=== PATIENT | male | born 1955 | race Caucasian/White ===

== ENCOUNTER → 2016-08-27 | Outpatient (CLI) | payer BC ==
[2016-08-27 15:21] LABS: BASO % 0.5 %; BASO ABS # 0.03 K/uL (0-0.2); COMPLETE YES; EOS % 5.3 %; HEMATOCRIT 46.6 % (42-52); IG% 0.2 %; LYMPH % 34.3 %; LYMPH ABS # 1.89 K/uL (1.2-3.4); MEAN CELL VOLUME 86.1 fL (80-100); MEAN CORPUSCULAR HEMOGLOBIN 29.9 pg (25-34); MEAN CORPUSCULAR HGB CONC 34.8 g/dl (32-36); MEAN PLATELET VOLUME 9.1 fL (7.4-10.4); MONO % 10.5 %; NEUT % 49.2 %; PLATELET COUNT 206 K/uL (130-400); RED BLOOD COUNT 5.41 M/uL (4.7-6.1); WHITE BLOOD COUNT 5.51 K/uL (4.8-10.8)
[2016-08-27 15:30] LABS: URINE APPEARANCE CLEAR (CLEAR); URINE BILIRUBIN NEG (NEG); URINE COLOR YELLOW; URINE NITRITE NEG (NEG); URINE PH 5.5 (4.5-7.5); URINE SPECIFIC GRAVITY 1.015 (1.000-1.030); UROBILINOGEN NEG (NEG)
[2016-08-27 15:30] LABS: PROTHROMBIN TIME (PATIENT) 10.9 SECONDS (9.0-12.0)
[2016-08-27 15:36] LABS: MANUAL MICROSCOPIC REQUIRED? NO; REVIEW REQ? NO
[2016-08-27 15:48] LABS: BLOOD UREA NITROGEN 15 mg/dl (7-18); BUN/CREATININE RATIO 16.3 (10-20); CHLORIDE 106 mmol/L (98-107); CREATININE 0.93 mg/dl (0.60-1.40); GLUCOSE 121 mg/dl (70-99); POTASSIUM 3.5 mmol/L (3.5-5.1); SODIUM 139 mmol/L (136-145)
[2016-08-27 15:49] LABS: ALT/SGPT 41 U/L (12-78); CALCIUM 9.1 mg/dl (8.5-10.1); CARBON DIOXIDE 25 mmol/L (21-32)
[2016-08-27 15:52] LABS: ALB/GLOB RATIO 1.2 (0.9-2); ALKALINE PHOSPHATASE 102 U/L (45-117); AST/SGOT 26 U/L (15-37)
== END | disposition home or self-care (01) ==
LOC: C.CPL 14:41
PROVIDERS: ATTEND Orthopaedic Surgery
DX: M17.12 Unilateral primary osteoarthritis, left knee (principal)

== ENCOUNTER → 2017-05-13 | Outpatient (CLI) | payer BC | END | disposition home or self-care (01) | LOC: C.LAB 11:01 | PROVIDERS: ATTEND Urology | DX: N40.1 Benign prostatic hyperplasia with lower urinary tract symptoms (principal) ==

== ENCOUNTER 2021-11-02 13:52 | Inpatient (IN) ==
[2021-11-02] MEDS ORDERED: MoRPHine SULFATE 4 MG/ML 1 ML CARP\\VIAL IV PRN (16:01)
[2021-11-02] MEDS ORDERED: ONDANSETRON INJ 2 MG/ML 2 ML VIAL IV STA (16:01)
[2021-11-02] MEDS ORDERED: methylPREDNISolone 125 MG/2 ML VIAL IV STA (16:02)
[2021-11-02 16:37] LABS: Basophils # (auto) 0.04 K/uL (0-0.2); Basophils % (auto) 0.5 %; Eosinophils # (auto) 0.09 K/uL (0-0.50); Eosinophils % (auto) 1.1 %; Hematocrit (blood only) 52.7 % (40.1-51.0); Hemoglobin 18.4 g/dl (14.0-18.0); Immature Granulocytes # (auto) 0.03 K/uL (0.00-0.02); Immature Granulocytes % (auto) 0.4 %; Lymphocytes # (auto) 1.68 K/uL (1.2-3.4); Lymphocytes % (auto) 21.3 %; Mean Corpuscular Hemoglobin 30.6 pg (25.0-34.0); Mean Corpuscular Hgb Conc 34.9 g/dL (32.0-36.0); Mean Corpuscular Volume 87.5 fL (80.0-100.0); Mean Platelet Volume 8.3 fL (9.4-12.4); Monocytes # (auto) 0.82 K/uL (0.24-0.82); Monocytes % (auto) 10.4 %; Neutrophils # (auto) 5.23 K/uL (1.4-6.5); Neutrophils % (auto) 66.3 %; Platelet Count 201 K/uL (130-400); RDW Coefficient of Variation 12.8 % (11.5-14.5); RDW Standard Deviation 41.3 fL (36.4-46.3); Red Blood Count 6.02 M/uL (4.63-6.08); White Blood Count 7.89 K/ul (4.8-10.8)
--- NOTE | 2021-11-02 16:52 | History & Physical Report ---
Date of Service November 02, 2021 Assessment & Plan (1) Degenerative disc disease: (2) Lumbar radiculopathy: (3) Prediabetes: (4) HLD (hyperlipidemia): (5) BPH w urinary obs/LUTS: Plan Pt is a 66 year old who presented to the [facility] with worsening sciatica and lower back pain. Pt has had complex back surgeries in his past. Two weeks ago, on 10/20 an MRI was obtained and results indicated disc buldging; surgery was discussed but more conservative approach was made. Pt returned to ED with worsening pain and symptoms. Dr. Moore to see pt on 11/03 for evaluation for surgery. Patient will be admitted under medicine service overnight; pain management and will be kept NPO after midnight for possible surgical intervention. Degenerative Disc Disease Lumbar Radiculopathy 10/20/21: Lumbar MRI: 9 x 6 mm right foraminal disc extrusion at the L3-L4 level which compresses the exiting right L3 nerve root Mild paravertebral edema and enhancement at the L3 level. Mild endplate edema at the L2-L3 level. Conservative management decided on initially; appears to have persistent symptoms not responding to conservative treatment, which brought him back to ED today. Orthopedics surgery consulted; Dr. Moore aware and plan for eval and possible surgery on 11/03 Pain management: Morphine IV 2mg Q3 PRN and Ketorolac ordered. Bowel regimen; senna and colace ordered. NPO after midnight Hgb 18.4; will trend in AM with CBC and also a BMP PT/OT if surgery pursued. Prediabetes: Diet controlled A1C: 5.6 on 08/30/21 HLD: Stable; takes Atorvastatin; continue after surgery. BPH: Stable: Takes Diana; continue after surgery. Disposition: PCP: Dr. Mert Linares VTE prophylaxis: SCDs; consider additional regimen post op Code Status: Full code Next of kin: ; [place]: [phone] Please contact [facility] Hospitalist service for further inpatient needs. We are available on [employer] 17/09. History of Present Illness Chief Complaint: sciatica/pain Primary Care Provider: Mert Linares DO Pt is a 66 year old who presented to the [facility] with worsening sciatica and lower back pain 12/04. Pt has had complex back surgeries in his past. Two weeks ago, on 10/20 a lumbar spine x-ray and MRI was obtained and results indicated disc buldging; surgery was discussed but more conservative approach was made. Pt returned to ED with worsening pain and symptoms. Dr. Moore to see pt on 11/03 for evaluation for surgery. Patient will be admitted under medicine service overnight; pain management and will be kept NPO after midnight for possible surgical intervention. Additional PMH includes: HLD, prediabetes, arthritis and BPH. Please see A/P for further details. Allergies Allergy/AdvReac Type Severity Reaction Status Date / Time No Known Allergies Allergy Verified 01/16/21 08:52 Home Medications Medication Instructions Recorded Confirmed Type atorvastatin 20 mg tablet 20 mg PO QAM 09/29/19 11/02/21 History dutasteride 0.5 mg-tamsulosin ER 1 cap PO QAM #90 caps 12/26/20 11/02/21 Rx 0.4 mg capsule ext.release 24hr mphas (Diana) potassium citrate 10 mEq (1,080 10 meq PO QAM #90 tabs 12/26/20 11/02/21 Rx mg) tablet,extended release prednisone 10 mg tablet See Rx Instructions .Route 10/20/21 11/02/21 Rx .COMPLEX #39 tabs Past Med/Surg History Medical History Arthritis BPH (benign prostatic hyperplasia) Degenerative disc disease High cholesterol History of COVID-19 02/2020 (ALL SYMPTOMS RESOLVED) History of kidney stones HLD (hyperlipidemia) Prediabetes Spinal stenosis Surgical History H/O bilateral inguinal hernia repair History of carpal tunnel surgery RT/LEFT History of colonoscopy History of cystoscopy History of decompression of ulnar nerve left History of lumbar surgery for disc fragment and spinal stenosis History of tonsillectomy Hx of sinus surgery Total knee replacement status RT/LEFT [place] teeth removed Family History Father Prostate cancer Mother Diabetes Family history of diabetes mellitus Brother Family history of diabetes mellitus Other No family history of adverse response to anesthesia Social History Smoking Status: Never smoker Second Hand Exposure: No; Hx Alcohol Use: No Hx Substance Use: No Preferred Language: Finnish Communication Ability: Effective 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 Beliefs That Will Affect Care: None marital status: Current Living Situation: Spouse current occupational status: employed and retired current occupation: [employer] How many Children do You have: 1 Feels Safe at Home: Yes Assistive Devices: Glasses Review of Systems Review of Systems: Neuro: (-) Falls, trauma, slurred speech (+) sciatica HEENT: (-) DOOLEY, dizziness, dysphagia, visual or auditory changes CV: (-) CP, palpitations, swelling Resp: (-) SOB GI: (-) appetite changes, N/V/D, bowel changes : (-) urinary changes Skin: (-) rashes Psych: (-) anxiety, depression Physical Exam Physical Exam: Neuro: AAOx4, PERRLA, no aphagia, memory changes, CNII-XII grossly intact HEENT: head normocephalic, moist mucus membranes CV: S1/S2, (-) M/G/R, (-) edema, cap refill < 3 seconds Resp: Lungs CTA in all powers. On RA GI: Abdomen S/NT/ND, Ax4 bowel sounds, (-) CVA tenderness Musculoskeletal: 5/5 B/L UE strength, 5/5 B/L LE strength. (+) radiation pain down both legs with movement. Skin: (-) rashes , (-) erythema. Psych: euthymic mood Results & Data Results & Data ([facility]) Vital Signs (Past 12 Hours) Vital Signs Temp Pulse Resp BP Pulse Ox O2 Del Method 11/02/21 14:36 36.9 C 110 H 17 111/75 96 Room Air Laboratory Results Short CBC 11/02/21 Range/Units 16:20 WBC 7.89 (4.8-10.8) K/ul Hgb 18.4 H (14.0-18.0) g/dl Hct 52.7 H (40.1-51.0) % Plt Count 201 (130-400) K/uL Code Status & VTE Plan Code Status Full code in the event of cardiac or respiratory arrest VTE Prophylaxis Plan VTE Prophylaxis will be ordered: Yes Supervising Physician Co-Signing Physician Notes 66-year-old male with PMH of low back pain with radiculopathic pain to RLE presented with worsening low back pain and BLE radicular pain this time. Recent MRI on 10/20 suggestive of moderate to severe central canal narrowing of lumbar region and right foraminal disc extrusion at L3-L4 level compressing exiting right L3 nerve root. Orthospine aware and will likely evaluate tomorrow for possible surgery. N.p.o. midnight. Patient reports pain under control when lying in bed but exacerbated with any movement or walking, patient reports not being able to sleep since last 2 nights due to pain. Patient does have history of 2 previous low back surgery. Pain management. Bowel regimen. N.p.o. midnight. Possible surgery tomorrow. Upon examination: GENERAL: Alert and oriented x3. NAD, on RA. HEENT: No pallor, no icterus. Pupils equal, round and reactive to light. Oral mucosa moist. NECK: No JVD, no neck masses. HEART: S1 and S2 heard. Regular rate and rhythm. No murmur, no gallop. RESPIRATORY SYSTEM: Normal AP diameter. No accessory muscle use. No wheezing, no crackles. ABDOMEN: Soft, bowel sounds present, nontender, no distention. CENTRAL NERVOUS SYSTEM: No facial droop. Speech is clear. Obeys simple commands. Moves extremities. EXTREMITIES: No edema, no erythema seen. Lower back pain and radicular pain w/ passive movement of LE. I have seen and examined the patient and have discussed the case with the provider above. I agree with the assessment and plan as stated.
[2021-11-02 16:54] LABS: Alanine Aminotransferase 24 U/L (7-52); Albumin Globulin Ratio 1.8 (0.9-2); Albumin Level 4.2 gm/dl (3.4-5.0); Alkaline Phosphatase 80 U/L (34-104); Anion Gap 7 (3-11); Aspartate Aminotransferase 21 U/L (13-39); BUN Creatinine Ratio 23.3 (10-20); Bilirubin,Total 0.9 mg/dl (0.2-1.0); Blood Urea Nitrogen 20 mg/dl (6-23); Calcium 9.3 mg/dl (8.5-10.1); Carbon Dioxide 29 mmol/L (21-32); Chloride 103 mmol/L (98-107); Est GFR (African American) 104.7 ml/min; Est GFR (Non-African American) 90.4 ml/min; Globulin 2.4 gm/dl (2.5-4.0); Glucose 91 mg/dl (70-99(Fasting)); Potassium 4.6 mmol/L (3.5-5.1); Sodium 139 mmol/L (136-145); Total Protein 6.6 gm/dl (6.0-8.3)
--- NOTE | 2021-11-02 16:56 | Emergency Department Note ---
History of Present Illness General Chief complaint: Leg Injury/Pain Stated complaint: SEVERE LEG PAIN Time Seen by Provider: 11/02/21 15:49 History of Present Illness Maximum Pain Intensity: 10 This is a 66-year-old male presenting to the emergency department for evaluation of severe pain in his back and right leg. The patient is known to me from an ER visit about 2 weeks ago where MRI was performed and showed significant disc disease in the low back. The patient subsequently has followed with [facility]al pain management [facility] well as [facility]. The patient is not doing well with home oxycodone and prednisone. He was not able to sleep last night because of the pain which he rates a 10/10. He does not have any new injuries such as fall or trauma. There is an old history of surgery. The patient is accompanied by his who assists in the history. He has not had fevers or chills. He is unable to ambulate because of his pain. Home Medications Medication Instructions Recorded Confirmed Type atorvastatin 20 mg tablet 20 mg PO QAM 09/29/19 11/02/21 History dutasteride 0.5 mg-tamsulosin ER 1 cap PO QAM #90 caps 12/26/20 11/02/21 Rx 0.4 mg capsule ext.release 24hr mphas (Diana) potassium citrate 10 mEq (1,080 10 meq PO QAM #90 tabs 12/26/20 11/02/21 Rx mg) tablet,extended release prednisone 10 mg tablet See Rx Instructions .Route 10/20/21 11/02/21 Rx .COMPLEX #39 tabs Allergies Allergy/AdvReac Type Severity Reaction Status Date / Time No Known Allergies Allergy Verified 01/16/21 08:52 Past Med/Surg History Medical History Arthritis BPH (benign prostatic hyperplasia) Degenerative disc disease High cholesterol History of COVID-19 02/2020 (ALL SYMPTOMS RESOLVED) History of kidney stones HLD (hyperlipidemia) Prediabetes Spinal stenosis Surgical History H/O bilateral inguinal hernia repair History of carpal tunnel surgery RT/LEFT History of colonoscopy History of cystoscopy History of decompression of ulnar nerve left History of lumbar surgery for disc fragment and spinal stenosis History of tonsillectomy Hx of sinus surgery Total knee replacement status RT/LEFT [place] teeth removed Family History Father Prostate cancer Mother Diabetes Family history of diabetes mellitus Brother Family history of diabetes mellitus Other No family history of adverse response to anesthesia Social History Smoking Status: Never smoker Second Hand Exposure: No; Hx Alcohol Use: No Hx Substance Use: No Preferred Language: Czech Communication Ability: Effective Anesthesiology Medical Doctor Required: No Beliefs That Will Affect Care: None marital status: Current Living Situation: Spouse current occupational status: employed and retired current occupation: [employer] How many Children do You have: 1 Feels Safe at Home: Yes Assistive Devices: Glasses Review of Systems A total of 10 systems reviewed and were otherwise negative Physical Exam Vital Signs Vital Signs - 24 hr 11/02/21 14:36 Temperature 36.9 C Temperature Source Temporal Artery Scan Pulse Rate 110 H Respiratory Rate 17 Blood Pressure 111/75 Blood Pressure Mean 87 Pulse Oximetry 96 Oxygen Delivery Method Room Air Sepsis Recent Fever Within 48 Hours No Sepsis New/Unexplained Change in Mental Status N/A Sepsis Action Taken by Nursing No Action Required VITALS: Vitals are noted on the nurse's note and reviewed by myself. Vital signs stable. GENERAL: Well-developed, well-nourished, white male, who is quite pleasant but moderately uncomfortable. HEAD: Normocephalic atraumatic. HEART: Regular rate and rhythm without murmurs gallops or rubs. LUNGS: Clear to auscultation bilaterally without wheezes, rales or rhonchi. No retractions or accessory muscle use. BACK: Diffuse tenderness throughout the lumbar spine. Positive straight leg raise on the right. No saddle paresthesias. MUSCULOSKELETAL: No muscle atrophy, erythema, or edema noted. Full range of motion in all extremities. NEURO: Patient was alert and oriented to person place and time. CN II through XII grossly intact. Course Administered Medications Morphine Sulfate (Morphine Sulfate 2 Mg/Ml Carp) 2 mg IV Q4H PRN PRN Reason: Pain Stop: 11/16/21 17:44 Last Admin: 11/02/21 18:24 Dose: 2 mg Documented By: ABY Discontinued Medications Methylprednisolone (Methylprednisolone 125 Mg/2 Ml Vial) 125 mg IV NOW STA Stop: 11/02/21 16:03 Last Admin: 11/02/21 16:27 Dose: 125 mg Documented By: VANITA Morphine Sulfate (Morphine Sulfate 4 Mg/Ml 1 Ml Carp\Vial) 4 mg IV Q30M PRN PRN Reason: Pain Stop: 11/16/21 16:00 Last Admin: 11/02/21 16:28 Dose: 4 mg Documented By: VANITA Ondansetron HCl (Ondansetron Inj 2 Mg/Ml 2 Ml Vial) 4 mg IV NOW STA Stop: 11/02/21 16:02 Last Admin: 11/02/21 16:27 Dose: 4 mg Documented By: VANITA Medical Decision Making Differential Diagnosis Differential diagnosis: Etiologies such as muscular strain, fracture, metastatic disease, disc herniation, sciatica, epidural abscess, vertebral osteomyelitis, discitis, spinal epidural hematoma, cord compression, cauda equina/conus medullaris syndrome, aortic disease, infection, shingles, renal colic UTI/pyelonephritis, gastrointestinal, acute exacerbation of chronic back pain, as well as others were entertained. Laboratory Data Result diagrams: 11/02/21 16:20 11/02/21 16:20 Lab Results 11/02/21 11/02/21 11/02/21 Range/Units 16:20 16:20 Unknown WBC 7.89 (4.8-10.8) K/ul RBC 6.02 (4.63-6.08) M/uL Hgb 18.4 H (14.0-18.0) g/dl Hct 52.7 H (40.1-51.0) % MCV 87.5 (80.0-100.0) fL MCH 30.6 (25.0-34.0) pg MCHC 34.9 (32.0-36.0) g/dL RDW Std Deviation 41.3 (36.4-46.3) fL RDW Coeff of Levy 12.8 (11.5-14.5) % Plt Count 201 (130-400) K/uL MPV 8.3 L (9.4-12.4) fL Immature Gran % (Auto) 0.4 % Neut % (Auto) 66.3 % Lymph % (Auto) 21.3 % Park % (Auto) 10.4 % Eos % (Auto) 1.1 % Baso % (Auto) 0.5 % Neut # (Auto) 5.23 (1.4-6.5) K/uL Lymph # (Auto) 1.68 (1.2-3.4) K/uL Park # (Auto) 0.82 (0.24-0.82) K/uL Eos # (Auto) 0.09 (0-0.50) K/uL Baso # (Auto) 0.04 (0-0.2) K/uL Immature Gran # (Auto) 0.03 H (0.00-0.02) K/uL Sodium 139 (136-145) mmol/L Potassium 4.6 (3.5-5.1) mmol/L Chloride 103 (98-107) mmol/L Carbon Dioxide 29 (21-32) mmol/L Anion Gap 7 (3-11) BUN 20 (6-23) mg/dl Creatinine 0.86 (0.6-1.4) mg/dl Est Cr Clr Drug Dosing Not Reportable Est GFR ( Amer) 104.7 ml/min Est GFR (Non-Af Amer) 90.4 ml/min BUN/Creatinine Ratio 23.3 H (10-20) Glucose 91 (70-99(Fasting)) mg/dl Calcium 9.3 (8.5-10.1) mg/dl Total Bilirubin 0.9 (0.2-1.0) mg/dl AST 21 (13-39) U/L ALT 24 (7-52) U/L Alkaline Phosphatase 80 (34-104) U/L Total Protein 6.6 (6.0-8.3) gm/dl Albumin 4.2 (3.4-5.0) gm/dl Globulin 2.4 L (2.5-4.0) gm/dl Albumin/Globulin Ratio 1.8 (0.9-2) SARS-CoV-2, RNA, NAAT NEGATIVE (NEGATIVE) MDM Narrative Physical exam and history were performed. Nursing notes, EMR, and Medication List were personally reviewed. Patient appears to have back pain bringing him to the ER. He does have abnormal MRI 2 weeks ago and has attempted to pursue outpatient treatment. The patient appears very uncomfortable and is currently not able to ambulate. He is without fever or significant neurologic deficit. IV access was established and labs were obtained. He was given IV Solu-Medrol, IV morphine, and IV Zofran. Patient's blood work is as above and was reviewed. He does not have a significantly elevated white blood cell count, gross anemia, bandemia, or or significant electrolyte imbalance. COVID is negative. I did speak with Dr. Moore, orthopedic cleaning specialist, regarding the patient and his symptoms. Dr. Moore is highly suspicious the patient will need operative repair of his back on a fairly urgent basis. At this time this does not appear to need surgery tonight, however having this performed tomorrow is reasonable. The patient is comfortable with staying in the hospital for evaluation. The case was discussed with the on-call hospitalist team to help facilitate admission. Please see their dictations for further patient course, plan, disposition. The chart was completed utilizing [employer] Speech Voice Recognition Software. G rammatical errors, random word insertions, pronoun errors, and incomplete sentences are an occasional consequence of this system due to software limitations, ambient noise, and hardware issues. Any formal questions or concerns about the content, text, or information contained within the body of this dictation should be directly addressed to the provider for clarification. . Impression & Plan Bulging lumbar disc, Lumbar radiculopathy, Intractable back pain Discharge Plan Visit Data Chief Complaint: Leg Injury/Pain Stated Complaint: SEVERE LEG PAIN ED Provider: Mathew Bullock ED Midlevel Provider: Gabriel Moon Discharge Problem: Bulging lumbar disc, Lumbar radiculopathy, Intractable back pain Forms Stand Alone Forms: [facility] Prescriptions Prescriptions: No Action atorvastatin 20 mg tablet 20 mg PO QAM dutasteride-tamsulosin [Diana] 0.5-0.4 mg capsule, ER multiphase 24 hr 1 cap PO QAM Qty: 90 3RF potassium citrate 10 mEq (1,080 mg) tablet extended release 10 meq PO QAM Qty: 90 3RF prednisone 10 mg tablet See Rx Instructions .ROUTE .COMPLEX Qty: 39 0RF Rx Instructions: 50mg x3d, 40mg x3d, 30mg x2d, 20mg x2d, 10mg x2d Referrals Referrals: Mert Linares DO [Primary Care Provider] -
[2021-11-02] MEDS: MoRPHine SULFATE 2 MG/ML CARP IV PRN (18:24)
[2021-11-02] MEDS ORDERED: KETOROLAC TROMETHAMINE 15 MG/ML VIAL IV PRN (21:12)
[2021-11-02] MEDS: DOCUSATE SODIUM 100 MG CAP PO SCH (22:08)
[2021-11-03 07:41] LABS: Hematocrit (blood only) 53.4 % (40.1-51.0); Hemoglobin 18.7 g/dl (14.0-18.0); Mean Corpuscular Hemoglobin 30.4 pg (25.0-34.0); Mean Corpuscular Volume 86.7 fL (80.0-100.0); Mean Platelet Volume 8.6 fL (9.4-12.4); Platelet Count 218 K/uL (130-400); RDW Coefficient of Variation 12.4 % (11.5-14.5); Red Blood Count 6.16 M/uL (4.63-6.08); White Blood Count 14.26 K/ul (4.8-10.8)
[2021-11-03] MEDS: DOCUSATE SODIUM 100 MG CAP PO SCH ×2 (07:45→20:19)
[2021-11-03] MEDS: SENNA 8.6 MG TAB PO SCH (07:45)
[2021-11-03 08:10] LABS: BUN Creatinine Ratio 25.7 (10-20); Calcium 9.4 mg/dl (8.5-10.1); Creatinine Clr Calc Pharmacy 106.2 ml/min; Est GFR (Non-African American) 98.3 ml/min
[2021-11-03] MEDS: TAMSULOSIN HCL 0.4 MG CAP PO SCH (09:19)
--- NOTE | 2021-11-03 09:44 | Electrocardiogram Report ---
Test Reason : Blood Pressure : / mmHG Vent. Rate : 071 BPM Atrial Rate : 071 BPM P-R Int : 150 ms QRS Dur : 130 ms QT Int : 432 ms P-R-T Axes : 043 027 023 degrees QTc Int : 469 ms Normal sinus rhythm Right bundle branch block Abnormal ECG When compared with ECG of 03-OCT-2020 11:06, No significant change was found Confirmed by Marcos Redd ([id number]) on 11/03/2021 9:44:14 AM Referred By: REFERRED SELF Confirmed By:Marcos Redd
[2021-11-03] MEDS: MoRPHine SULFATE 2 MG/ML CARP IV PRN ×2 (09:53→20:23)
--- NOTE | 2021-11-03 12:51 | Orthopedic Consultation ---
Date of Consultation November 03, 2021 Assessment & Plan (1) Lumbar disc herniation with radiculopathy: Assessment lumbar spinal stenosis with herniated pulposis and radiculopathy. Plan this time the patient's most recent MRI performed on 826 does demonstrate evidence of significant stenosis at this protrusion L2-L3 L3-L4 with a foraminal disc L3-L4 on the right. This is concordant with his symptom complex. He is markedly uncomfortable secondary to the radiculopathy and risk for permanent neurodeficit. We will attempt physical therapy. He also has access to pain medications. I will assess his progress over the next few days. If he fails to improve we may need to consider a lumbar decompression and fusion L2-L3 L3-L4. Patient understands agrees. History of Present Illness Reason for Consultation: Right leg pain with weakness Attending Physician: Gladis Herndon, DO History of Present Illness This is a 66-year-old male that is seen in our office prior to his emergency room visit last night. He does have known severe spinal stenosis L2-L3 L3-L4 with a foraminal disc herniation L3-L4 on the right. He is undergone extensive course of oral medications and an injection but continues to be miserable. He comes emergency room last night with severe pain and inability to function at home. This morning he is comfortable lying in bed. He states physical therapy was tolerable for the first several steps but then the symptoms returned and were severe in nature. He feels his right leg will give way secondary weakness. He requires narcotic medications to control his symptoms. Allergies Allergy/AdvReac Type Severity Reaction Status Date / Time No Known Allergies Allergy Verified 01/16/21 08:52 Home Medications Medication Instructions Recorded Confirmed Type atorvastatin 20 mg tablet 20 mg PO QAM 09/29/19 11/02/21 History dutasteride 0.5 mg-tamsulosin ER 1 cap PO QAM #90 caps 12/26/20 11/02/21 Rx 0.4 mg capsule ext.release 24hr mphas (Diana) potassium citrate 10 mEq (1,080 10 meq PO QAM #90 tabs 12/26/20 11/02/21 Rx mg) tablet,extended release prednisone 10 mg tablet See Rx Instructions .Route 10/20/21 11/02/21 Rx .COMPLEX #39 tabs Patient History Medical History Arthritis BPH (benign prostatic hyperplasia) Degenerative disc disease High cholesterol History of COVID-19 02/2020 (ALL SYMPTOMS RESOLVED) History of kidney stones HLD (hyperlipidemia) Prediabetes Spinal stenosis Surgical History H/O bilateral inguinal hernia repair History of carpal tunnel surgery RT/LEFT History of colonoscopy History of cystoscopy History of decompression of ulnar nerve left History of lumbar surgery for disc fragment and spinal stenosis History of tonsillectomy Hx of sinus surgery Total knee replacement status RT/LEFT [place] teeth removed Family History Father Prostate cancer Mother Diabetes Family history of diabetes mellitus Brother Family history of diabetes mellitus Other No family history of adverse response to anesthesia Social History Smoking Status: Never smoker Second Hand Exposure: No; Do You Dip or Chew Tobacco: No; Hx Alcohol Use: No Hx Substance Use: No Preferred Language: Ugandan Communication Ability: Effective 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 He needs to keep his right leg flexed on a pillow to obtain any relief. Plantar flexion dorsiflexion is intact. Hip flexion quadriceps are 4-/5 on the right 5 5 on the left. Sensory diminished on the right compared to left. Deep tendon reflexes diminished. Results & Data ([facility]) Vital Signs (Past 12 Hours) Vital Signs Temp Pulse Resp BP Pulse Ox O2 Del Method 11/03/21 07:58 36.7 C 67 16 133/79 91 Room Air
[2021-11-03] MEDS: ACETAMINOPHEN 500 MG TAB PO SCH ×2 (14:03→21:51)
--- NOTE | 2021-11-03 14:28 | Hospitalist Progress Note ---
Date of Service November 03, 2021 Assessment & Plan (1) Degenerative disc disease: (2) Lumbar radiculopathy: (3) Prediabetes: (4) HLD (hyperlipidemia): (5) BPH w urinary obs/LUTS: Plan Pt is a 66 year old who presented to the [facility] with worsening sciatica and lower back pain. Pt has had complex back surgeries in his past. Two weeks ago, on 10/20 an MRI was obtained and results indicated disc buldging; surgery was discussed but more conservative approach was made. Pt returned to ED with worsening pain and symptoms. Degenerative Disc Disease Lumbar Radiculopathy 10/20/21: Lumbar MRI: 9 x 6 mm right foraminal disc extrusion at the L3-L4 level which compresses the exiting right L3 nerve root Mild paravertebral edema and enhancement at the L3 level. Mild endplate edema at the L2-L3 level. Spine ortho following Pain currently controlled with PRN ketorolac for mild pain and IV morphine for moderate to severe pain. Will add scheduled Tylenol. Bowel regimen; senna and colace ordered PT/OT Prediabetes: Diet controlled A1C: 5.6 on 08/30/21 HLD: Continue statin BPH: on Alycia at home which is non-formulary, will continue with tamsulosin Disposition: PCP: Dr. Mert Linares VTE prophylaxis: SCDs; consider additional regimen post op Code Status: Full code Next of kin: ; Jyotsna: [phone] Please contact [facility] Hospitalist service for further inpatient needs. We are available on [employer] Text 17/09. Admission and Anticipated Discharge Date Admission Date: November 02, 2021 Supervising Physician Co-Signing Physician Notes I have seen and examined the patient and have discussed the case with the provider above. I agree with the assessment and plan as stated with the following exceptions. 66 yo M presents with RLE pain and numbness in upper leg likely related to lumbar disc disease s/p back surgery. Pain is not controlled after his therapy session. Otherwise no symptoms at this time. Physical exam reveals supine man in moderate distress with movement of his right leg. Normal heart and lung exam, right knee without joint pain or effussion, right thigh with decreased sensation compared with left, pain with movement of right knee limiting strength exam, dorsi/plantarflexion intact 5/5. Back exam could not be performed 2/2 pain with movement. Start scheduled Toradol and valium for muscle relaxer effect. Definitive mangement per orthopedics. DO Yanick Subjective Follow-up for intractable back pain, lumbar radiculopathy. Patient seen and examined. Reports pain is controlled with current pain medication regimen. Patient does report significant pain with minimal amount of movement. Denies lower extremity weakness, numbness, tingling. No loss of bowel or bladder function. Denies chest pain shortness of breath. No abdominal pain or nausea. Review of Systems Review of Systems: ROS per HPI, all other systems reviewed and negative Physical Exam Constitutional: WD/WN, vitals as above Respiratory: normal respiratory effort, lungs clear to auscultation Cardiovascular: Rate/Rhythm: regular rate and regular rhythm Vessels: normal peripheral pulses Extremities: no edema Gastrointestinal (Abdomen): Percussion/Palpation: abdomen soft; abdomen nontender Musculoskeletal: Right pedal push/pull noted to be slightly weaker than left. Patient able to lift right leg against gravity without difficulty. Patient reports significant right hip pain that radiates into the right thigh/knee with minimal movement and standing. Skin: no rashes, warm and dry Neurologic: no focal motor deficits Psychiatric: A+Ox3, euthymic affect Results & Data Results & Data ([facility]) Vital Signs (Past 12 Hours) Vital Signs Temp Pulse Resp BP Pulse Ox O2 Del Method 11/03/21 07:58 36.7 C 67 16 133/79 91 Room Air Laboratory Results Short CBC 11/02/21 11/03/21 Range/Units 16:20 07:09 WBC 7.89 14.26 H (4.8-10.8) K/ul Hgb 18.4 H 18.7 H (14.0-18.0) g/dl Hct 52.7 H 53.4 H (40.1-51.0) % Plt Count 201 218 (130-400) K/uL BMP 11/02/21 11/03/21 16:20 07:09 Sodium 139 136 Potassium 4.6 4.0 Chloride 103 105 Carbon Dioxide 29 24 BUN 20 18 Creatinine 0.86 0.70 Glucose 91 132 H Calcium 9.3 9.4 Liver Function 11/02/21 Range/Units 16:20 Total Bilirubin 0.9 (0.2-1.0) mg/dl AST 21 (13-39) U/L ALT 24 (7-52) U/L Alkaline Phosphatase 80 (34-104) U/L Albumin 4.2 (3.4-5.0) gm/dl Medications Administered Current Inpatient Medications Acetaminophen (Acetaminophen 500 Mg Tab) 1,000 mg PO Q8H [facility] Stop: 12/03/21 13:59 Last Admin: 11/03/21 14:03 Dose: 1,000 mg Atorvastatin Calcium (Atorvastatin 20 Mg Tab) [facility] Stop: 12/04/21 08:59 Docusate Sodium (Docusate Sodium 100 Mg Cap) 100 mg PO BID [facility] Stop: 12/02/21 21:29 Last Admin: 11/03/21 07:45 Dose: 100 mg Ketorolac Tromethamine (Ketorolac Tromethamine 15 Mg/Ml Vial) 15 mg IV Q6H PRN PRN Reason: Mild-moderate pain Stop: 11/07/21 21:11 Last Admin: 11/03/21 05:14 Dose: 15 mg Morphine Sulfate (Morphine Sulfate 2 Mg/Ml Carp) 2 mg IV Q4H PRN PRN Reason: Severe pain Stop: 11/16/21 17:44 Last Admin: 11/03/21 09:53 Dose: 2 mg Sennosides (Senna 8.6 Mg Tab) 17.2 mg PO [facility] Stop: 12/03/21 08:59 Last Admin: 11/03/21 07:45 Dose: 17.2 mg Tamsulosin HCl (Tamsulosin Hcl 0.4 Mg Cap) 0.4 mg PO [facility] Stop: 12/03/21 08:59 Last Admin: 11/03/21 09:19 Dose: 0.4 mg
[2021-11-03] MEDS: diazePAM 2 MG TABLET PO SCH ×2 (17:46→20:19)
[2021-11-03] MEDS: KETOROLAC TROMETHAMINE 15 MG/ML VIAL IV SCH (17:46)
[2021-11-04] MEDS: KETOROLAC TROMETHAMINE 15 MG/ML VIAL IV SCH ×2 (01:37→09:51)
[2021-11-04] MEDS: MoRPHine SULFATE 2 MG/ML CARP IV PRN ×3 (03:12→19:25)
[2021-11-04] MEDS: ACETAMINOPHEN 500 MG TAB PO SCH ×3 (05:47→21:41)
[2021-11-04] MEDS: ATORVASTATIN 20 MG TAB PO SCH (08:06)
[2021-11-04] MEDS: DOCUSATE SODIUM 100 MG CAP PO SCH ×2 (08:07→21:42)
[2021-11-04] MEDS: SENNA 8.6 MG TAB PO SCH (08:07)
[2021-11-04] MEDS: TAMSULOSIN HCL 0.4 MG CAP PO SCH (08:07)
[2021-11-04 08:43] LABS: Hematocrit (blood only) 49.7 % (40.1-51.0); Hemoglobin 16.9 g/dl (14.0-18.0); Mean Corpuscular Hemoglobin 30.2 pg (25.0-34.0); Mean Corpuscular Volume 88.9 fL (80.0-100.0); Mean Platelet Volume 8.3 fL (9.4-12.4); Platelet Count 169 K/uL (130-400); RDW Coefficient of Variation 12.8 % (11.5-14.5); RDW Standard Deviation 42.1 fL (36.4-46.3); Red Blood Count 5.59 M/uL (4.63-6.08); White Blood Count 9.83 K/ul (4.8-10.8)
--- NOTE | 2021-11-04 08:53 | Orthopedic Progress Note ---
Date of Service November 04, 2021 Assessment & Plan (1) Lumbar disc herniation with radiculopathy: Plan: Today we will attempt physical therapy but if it is intolerable we will have to cancel it. Is continue to require narcotic medications to control his pain. If he fails to improve is going to recommend we proceed with surgery soon as Saturday. Admission and Anticipated Discharge Date Admission Date: November 02, 2021 Subjective Patient continues to have severe right leg pain. He is comfortable lying lying supine with his right leg propped up on her pillows. He is quite nervous to participate with physical therapy today as it created significant pain. Physical Exam Physical Exam: On exam he has marked deficit the right quadricep. Plantar flexion dorsiflexion intact. Results & Data ([facility]) Vital Signs (Past 12 Hours) Vital Signs Temp Pulse Resp BP Pulse Ox O2 Del Method 11/04/21 07:32 36.6 C 58 L 16 132/81 96 Room Air 11/03/21 22:00 36.5 C 61 20 121/69 96 Room Air
[2021-11-04] MEDS: diazePAM 2 MG TABLET PO SCH (09:51)
--- NOTE | 2021-11-04 10:52 | Hospitalist Progress Note ---
Date of Service November 04, 2021 Assessment & Plan (1) Degenerative disc disease: (2) Lumbar radiculopathy: (3) Prediabetes: (4) HLD (hyperlipidemia): (5) BPH w urinary obs/LUTS: Plan Pt is a 66 year old who presented to the [facility] with worsening sciatica and lower back pain. Pt has had complex back surgeries in his past. Two weeks ago, on 10/20 an MRI was obtained and results indicated disc buldging; surgery was discussed but more conservative approach was made. Pt returned to ED with worsening pain and symptoms. Degenerative Disc Disease Lumbar Radiculopathy 10/20/21: Lumbar MRI: 9 x 6 mm right foraminal disc extrusion at the L3-L4 level which compresses the exiting right L3 nerve root Mild paravertebral edema and enhancement at the L3 level. Mild endplate edema at the L2-L3 level. Spine ortho following Pain currently uncontrolled controlled with PRN ketorolac for mild pain and IV morphine for moderate to severe pain, scheduled Tylenol and valium 2mg. Will increase valium to 5mg TID. One dose of Ibuprofen given this morning for severe pain but will avoid NSAIDs in preoperative state. Prediabetes: Diet controlled A1C: 5.6 on 08/30/21 HLD: Continue statin BPH: on Alycia at home which is non-formulary, will continue with tamsulosin Disposition: PCP: Dr. Mert Linares VTE prophylaxis: SCDs; consider additional regimen post op Code Status: Full code Next of kin: ; Jyotsna: [phone] Please contact [facility] Hospitalist service for further inpatient needs. We are available on [employer] Text 17/09 via the [facility] Hospitalist role. Gladis Herndon DO [facility] Hospitalist Admission and Anticipated Discharge Date Admission Date: November 02, 2021 Subjective Follow-up for intractable back pain, lumbar radiculopathy. Patient seen and examined. Reports pain still uncontrolled overnight despite Toradol and Valium Pain is still localized to his right thigh and right knee There is loss of sensation on the right upper thigh Review of Systems Review of Systems: All systems reviewed negative except as indicated above. Physical Exam Physical Exam: CONSTITUTIONAL: WNWD, vitals as above, generally well- appearing, NAD EYES: normal n, no scleral icterus ENT: external ear and nose normal, oropharynx clear, MMM NECK: trachea midline RESPIRATORY: clear to auscultation bilaterally, no crackles, rales or wheezes, normal respiratory effort CARDIOVASCULAR: regular rate and rhythm, S1 and 2 heard without murmurs, gallops or rubs, no JVD, no peripheral edema CHEST: inspection of chest was normal GASTROINTESTINAL: soft, nontender, ND, no guarding MUSCULOSKELETAL: strength 5/5 throughout, head is normocephalic and atraumatic, neck supple, normal palpation of chest wall without tenderness SKIN: warm and dry NEUROLOGIC: CN 2-12 grossly intact, no sensory deficit, normal cognition, nor mal speech, no tremor PSYCHIATRIC: alert cooperative and oriented to person, place and time. Results & Data Results & Data ([facility]) Vital Signs (Past 12 Hours) Vital Signs Temp Pulse Resp BP Pulse Ox O2 Del Method 11/04/21 07:32 36.6 C 58 L 16 132/81 96 Room Air Laboratory Results Short CBC 11/04/21 Range/Units 08:27 WBC 9.83 (4.8-10.8) K/ul Hgb 16.9 (14.0-18.0) g/dl Hct 49.7 (40.1-51.0) % Plt Count 169 (130-400) K/uL Medications Administered Current Inpatient Medications Acetaminophen (Acetaminophen 500 Mg Tab) 1,000 mg PO Q8H [facility] Stop: 12/03/21 13:59 Last Admin: 11/04/21 05:47 Dose: 1,000 mg Atorvastatin Calcium (Atorvastatin 20 Mg Tab) 20 mg PO QAM [facility] Stop: 12/04/21 08:59 Last Admin: 11/04/21 08:06 Dose: 20 mg Diazepam (Diazepam 5 Mg Tablet) 5 mg PO TID [facility] Stop: 12/04/21 13:59 Docusate Sodium (Docusate Sodium 100 Mg Cap) 100 mg PO BID [facility] Stop: 12/02/21 21:29 Last Admin: 11/04/21 08:07 Dose: 100 mg Ibuprofen (Ibuprofen 800 Mg Tab) 800 mg PO Q8H [facility] Stop: 12/04/21 10:59 Morphine Sulfate (Morphine Sulfate 2 Mg/Ml Carp) 2 mg IV Q4H PRN PRN Reason: Severe pain Stop: 11/16/21 17:44 Last Admin: 11/04/21 08:06 Dose: 2 mg Sennosides (Senna 8.6 Mg Tab) 17.2 mg PO [facility] Stop: 12/03/21 08:59 Last Admin: 11/04/21 08:07 Dose: 17.2 mg Tamsulosin HCl (Tamsulosin Hcl 0.4 Mg Cap) 0.4 mg PO [facility] Stop: 12/03/21 08:59 Last Admin: 11/04/21 08:07 Dose: 0.4 mg
[2021-11-04] MEDS ORDERED: IBUPROFEN 800 MG TAB PO SCH (11:00)
[2021-11-04] MEDS: diazePAM 5 MG TABLET PO SCH ×2 (13:19→21:42)
[2021-11-04] MEDS ORDERED: MoRPHine SULFATE 2 MG/ML CARP IV STA (23:05)
[2021-11-04] MEDS: MoRPHine SULFATE 4 MG/ML 1 ML CARP\\VIAL IV PRN (23:24)
[2021-11-05] MEDS: MoRPHine SULFATE 4 MG/ML 1 ML CARP\\VIAL IV PRN ×3 (03:46→20:23)
[2021-11-05] MEDS: ACETAMINOPHEN 500 MG TAB PO SCH ×3 (05:51→21:41)
[2021-11-05] MEDS ORDERED: diazePAM 5 MG TABLET PO PRN (08:05)
[2021-11-05] MEDS: ATORVASTATIN 20 MG TAB PO SCH (08:17)
[2021-11-05] MEDS: TAMSULOSIN HCL 0.4 MG CAP PO SCH (08:17)
[2021-11-05] MEDS: SENNA 8.6 MG TAB PO SCH (08:17)
[2021-11-05] MEDS: DOCUSATE SODIUM 100 MG CAP PO SCH ×3 (08:17→20:28)
--- NOTE | 2021-11-05 11:19 | Orthopedic Progress Note ---
Date of Service November 05, 2021 Assessment & Plan (1) Lumbar disc herniation with radiculopathy: Plan: At this time is progressing poorly with physical therapy and requiring significant doses of pain medicine to control his pain. Make him n.p.o. after midnight and we will plan for surgery tomorrow. I outlined in detail what this would entail. Risk-benefit pros cons alternatives again outlined in detail. I did speak with his today on the phone. Admission and Anticipated Discharge Date Admission Date: November 02, 2021 Subjective Patient's continued complaint of severe right leg pain and weakness. He is having marked difficulty with physical therapy. Physical Exam Physical Exam: On exam again he is lying supine with his right leg propped up. This is his most comfortable position. Still significant strength deficits to hip flexion and quadriceps on the right. Results & Data ([facility]) Vital Signs (Past 12 Hours) Vital Signs Temp Pulse Resp BP Pulse Ox O2 Del Method 11/05/21 07:29 36.4 C L 54 L 16 153/89 H 95 Room Air
--- NOTE | 2021-11-05 14:09 | Hospitalist Progress Note ---
Date of Service November 05, 2021 Assessment & Plan (1) Degenerative disc disease: (2) Lumbar radiculopathy: (3) Prediabetes: (4) HLD (hyperlipidemia): (5) BPH w urinary obs/LUTS: Plan Pt is a 66 year old who presented to the [facility] with worsening sciatica and lower back pain. Pt has had complex back surgeries in his past. Two weeks ago, on 10/20 an MRI was obtained and results indicated disc buldging; surgery was discussed but more conservative approach was made. Pt returned to ED with worsening pain and symptoms. Degenerative Disc Disease Lumbar Radiculopathy 10/20/21: Lumbar MRI: 9 x 6 mm right foraminal disc extrusion at the L3-L4 level which compresses the exiting right L3 nerve root Mild paravertebral edema and enhancement at the L3 level. Mild endplate edema at the L2-L3 level. Spine ortho following Pain currently controlled with morphine. Cont supportive care until surgery early next week. Prediabetes: Diet controlled A1C: 5.6 on 08/30/21 HLD: Continue statin BPH: on Alycia at home which is non-formulary, will continue with tamsulosin Disposition: PCP: Dr. Mert Linares VTE prophylaxis: SCDs; consider additional regimen post op Code Status: Full code Next of kin: ; Jyotsna: [phone] Please contact [facility] Hospitalist service for further inpatient needs. We are available on [employer] Text 17/09 via the [facility] Hospitalist role. Gladis Herndon DO [facility] Hospitalist Admission and Anticipated Discharge Date Admission Date: November 02, 2021 Subjective Follow-up for intractable back pain, lumbar radiculopathy. Patient seen and examined. Reports pain still uncontrolled overnight until he had morphine added to regimen Now feeling better Pain is still localized to his right thigh and right knee There is loss of sensation on the right upper thigh Still unable to ambulate Review of Systems Review of Systems: All systems reviewed negative except as indicated above. Physical Exam Physical Exam: CONSTITUTIONAL: WNWD, vitals as above, generally well- appearing, NAD EYES: normal conjunctivae, no scleral icterus ENT: external ear and nose normal, oropharynx clear, MMM NECK: trachea midline RESPIRATORY: clear to auscultation bilaterally, no crackles, rales or wheezes, normal respiratory effort CARDIOVASCULAR: regular rate and rhythm, S1 and 2 heard without murmurs, gallops or rubs, no JVD, no peripheral edema CHEST: inspection of chest was normal GASTROINTESTINAL: soft, nontender, ND, no guarding MUSCULOSKELETAL: strength 5/5 throughout, head is normocephalic and atraumatic, neck supple, normal palpation of chest wall without tenderness SKIN: warm and dry NEUROLOGIC: CN 2-12 grossly intact, no sensory deficit, normal cognition, normal speech, no tremor PSYCHIATRIC: alert cooperative and oriented to person, place and time. Results & Data Results & Data ([facility]) Vital Signs (Past 12 Hours) Vital Signs Temp Pulse Resp BP Pulse Ox O2 Del Method 11/05/21 07:29 36.4 C L 54 L 16 153/89 H 95 Room Air Medications Administered Current Inpatient Medications Acetaminophen (Acetaminophen 500 Mg Tab) 1,000 mg PO Q8H [facility] Stop: 12/03/21 13:59 Last Admin: 11/05/21 13:55 Dose: 1,000 mg Atorvastatin Calcium (Atorvastatin 20 Mg Tab) 20 mg PO [facility] Stop: 12/04/21 08:59 Last Admin: 11/05/21 08:17 Dose: 20 mg Diazepam (Diazepam 5 Mg Tablet) 5 mg PO TID PRN PRN Reason: muscle spasm Stop: 12/04/21 13:59 Docusate Sodium (Docusate Sodium 100 Mg Cap) 100 mg PO BID [facility] Stop: 12/02/21 21:29 Last Admin: 11/05/21 08:17 Dose: 100 mg Morphine Sulfate (Morphine Sulfate 4 Mg/Ml 1 Ml Carp\Vial) 4 mg IV Q4H PRN PRN Reason: Severe pain 7,8,9,10 Stop: 11/16/21 17:44 Last Admin: 11/05/21 03:46 Dose: 4 mg Sennosides (Senna 8.6 Mg Tab) [facility] Stop: 12/03/21 08:59 Last Admin: 11/05/21 08:17 Dose: 17.2 mg Tamsulosin HCl (Tamsulosin Hcl 0.4 Mg Cap) 0.4 mg PO [facility] Stop: 12/03/21 08:59 Last Admin: 11/05/21 08:17 Dose: 0.4 mg
[2021-11-06] MEDS: MoRPHine SULFATE 4 MG/ML 1 ML CARP\\VIAL IV PRN ×3 (01:10→10:08)
[2021-11-06] MEDS: ACETAMINOPHEN 500 MG TAB PO SCH ×2 (05:47→18:25)
[2021-11-06] MEDS: DOCUSATE SODIUM 100 MG CAP PO SCH ×2 (08:48→20:01)
[2021-11-06] MEDS: TAMSULOSIN HCL 0.4 MG CAP PO SCH (08:48)
[2021-11-06] MEDS: ATORVASTATIN 20 MG TAB PO SCH (08:48)
[2021-11-06] MEDS: SENNA 8.6 MG TAB PO SCH (08:48)
--- NOTE | 2021-11-06 11:32 | Hospitalist Progress Note ---
Date of Service November 06, 2021 Assessment & Plan (1) Degenerative disc disease: (2) Lumbar radiculopathy: (3) Prediabetes: (4) HLD (hyperlipidemia): (5) BPH w urinary obs/LUTS: Plan Pt is a 66 year old who presented to the [facility] with worsening sciatica and lower back pain. Pt has had complex back surgeries in his past. Two weeks ago, on 10/20 an MRI was obtained and results indicated disc buldging; surgery was discussed but more conservative approach was made. Pt returned to ED with worsening pain and symptoms. Degenerative Disc Disease Lumbar Radiculopathy 10/20/21: Lumbar MRI: 9 x 6 mm right foraminal disc extrusion at the L3-L4 level which compresses the exiting right L3 nerve root Mild paravertebral edema and enhancement at the L3 level. Mild endplate edema at the L2-L3 level. Spine ortho following, tentative OR today Pain currently controlled with scheduled Tylenol, PRN morphine. Continue supportive care until surgery. PT/OT when appropriate Prediabetes: Diet controlled A1C: 5.6 on 08/30/21 HLD: Continue statin BPH: on Alycia at home which is non-formulary, will continue with tamsulosin Disposition: PCP: Dr. Mert Linares VTE prophylaxis: SCDs; consider additional regimen post op Admission and Anticipated Discharge Date Admission Date: November 02, 2021 Supervising Physician Co-Signing Physician Notes Patient seen and examined at bedside as a follow-up of lumbar region takes protrusion with lumbar radiculopathy with RLE greater than LLE symptoms. Orthospine following and plan for or tomorrow. N.p.o. midnight. CLabs in AM. Upon examination: GENERAL: Alert and oriented x3. NAD, on RA. HEENT: No pallor, no icterus. Pupils equal, round and reactive to light. Oral mucosa moist. NECK: No JVD, no neck masses. HEART: S1 and S2 heard. Regular rate and rhythm. No murmur, no gallop. RESPIRATORY SYSTEM: Normal AP diameter. No accessory muscle use. No wheezing, no crackles. ABDOMEN: Soft, bowel sounds present, nontender, no distention. CENTRAL NERVOUS SYSTEM: No facial droop. Speech is clear. Obeys simple commands. Moves extremities. EXTREMITIES: No edema, no erythema seen. Lower back pain and radicular pain w/ passive movement of LE. I have seen and examined the patient and have discussed the case with the provider above. I agree with the assessment and plan as stated. Subjective Follow up for intractable back pain, lumbar radiculopathy. Patient seen and examined. Resting in bed. For possible OR today. Pain continues in right thigh/knee. Much difficulty ambulating to bathroom. Denies chest pain and shortness of breath. No abdominal pain or nausea. No bowel or bladder dysfunction. Review of Systems Review of Systems: ROS per HPI, all other systems reviewed and negative Physical Exam Constitutional: WD/WN, vitals as above no acute distress Respiratory: normal respiratory effort, lungs clear to auscultation Cardiovascular: Rate/Rhythm: regular rate and regular rhythm Vessels: normal peripheral pulses Extremities: no edema Gastrointestinal (Abdomen): Percussion/Palpation: abdomen soft; abdomen nontender Musculoskeletal: mild LLE weakness noted with associated muscle atrophy Skin: no rashes, warm and dry Neurologic: no focal motor deficits Psychiatric: A+Ox3, euthymic affect Results & Data Results & Data ([facility]) Vital Signs (Past 12 Hours) Vital Signs Temp Pulse Resp BP Pulse Ox O2 Del Method 11/06/21 07:11 36.5 C 58 L 14 128/78 97 Room Air
--- NOTE | 2021-11-06 13:14 | History & Physical Bridge Note ---
Date of Service November 06, 2021 History & Physical Bridge Note I have examined the patient, reviewed the History & Physical and in the interval since the performance of the History & Physical I have noted the following changes of clinical significance: no changes noted Decompression fusion L2-L3 L3-L4.
[2021-11-06] MEDS ORDERED: ceFAZolin 2,000 MG/15 ML IV PUSH IV ONE (13:20)
[2021-11-06] MEDS ORDERED: ceFAZolin 2000MG 2,000 MG/15 ML SYR IV ONE (13:21)
[2021-11-06] MEDS ORDERED: MIDAZOLAM HCL 1 MG/ML 2ML VIAL ONE (13:30)
[2021-11-06] MEDS ORDERED: fentaNYL citrate 100 MCG/2 ML VIAL ONE ×2 (13:30→14:34)
[2021-11-06] MEDS ORDERED: BUPIVACAINE/EPINEPHRINE 0.25% 1:200,000 30 ML VIAL ONE (13:38)
[2021-11-06] MEDS ORDERED: ceFAZolin 330 MG/ML 1 GM VIAL ONE (13:39)
--- NOTE | 2021-11-06 13:54 | Anesthesiology Consultation ---
Date of Service November 06, 2021 Assessment & Plan Chart Review Chart Review: Acceptable Risk for Surgery and Patient NOT seen in Pre Admission Testing Consults Requested none History Surgery Operation Date: 11/06/21 08:20 Proposed Procedures p Decompression Fusion L2-L4 - Christian Moore DO Height/Weight Height: 5 ft 7 in Weight: 80.031 kg Allergies Allergy/AdvReac Type Severity Reaction Status Date / Time No Known Allergies Allergy Verified 01/16/21 08:52 Medications Home Medications Medication Instructions Recorded Confirmed Last Taken atorvastatin 20 mg tablet 20 mg PO QAM 09/29/19 11/02/21 10/05/20 dutasteride 0.5 mg-tamsulosin ER 1 cap PO QAM #90 caps 12/26/20 11/02/21 Unknown 0.4 mg capsule ext.release 24hr mphas (Diana) potassium citrate 10 mEq (1,080 10 meq PO QAM #90 tabs 12/26/20 11/02/21 Unknown mg) tablet,extended release prednisone 10 mg tablet See Rx Instructions .Route 10/20/21 11/02/21 Unknown .COMPLEX #39 tabs Active Medications Generic Name Dose Route Start Last Admin Trade Name Freq PRN Reason Stop Dose Admin Acetaminophen 1,000 mg 11/03/21 14:00 11/06/21 05:47 Acetaminophen 500 Mg Tab PO 12/03/21 13:59 1,000 mg Q8H [facility] Administration Atorvastatin Calcium 20 mg 11/04/21 09:00 11/06/21 08:48 Atorvastatin 20 Mg Tab PO 12/04/21 08:59 20 mg QAM [facility] Administration Diazepam 5 mg 11/05/21 08:05 11/06/21 08:48 Diazepam 5 Mg Tablet PO 12/04/21 13:59 5 mg TID PRN Administration muscle spasm Docusate Sodium 100 mg 11/02/21 21:30 11/06/21 08:48 Docusate Sodium 100 Mg Cap PO 12/02/21 21:29 100 mg BID [facility] Administration Morphine Sulfate 4 mg 11/04/21 23:00 11/06/21 10:08 Morphine Sulfate 4 Mg/Ml 1 Ml Carp\Vial IV 11/16/21 17:44 4 mg Q4H PRN Administration Severe pain 7,8,9,10 Sennosides 17.2 mg 11/03/21 09:00 11/06/21 08:48 Senna 8.6 Mg Tab PO 12/03/21 08:59 17.2 mg QAM [facility] Administration Tamsulosin HCl 0.4 mg 11/03/21 09:00 11/06/21 08:48 Tamsulosin Hcl 0.4 Mg Cap PO 12/03/21 08:59 0.4 mg QAM [facility] Administration NPO Date Last Intake of Fluids: 11/05/21 Time Last Intake of Fluids: 22:30 Date Last Intake of Solids: 11/05/21 Time Last Intake of Solids: 18:00 Past Medical History Medical History Arthritis BPH (benign prostatic hyperplasia) Degenerative disc disease High cholesterol History of COVID-19 02/2020 (ALL SYMPTOMS RESOLVED) History of kidney stones HLD (hyperlipidemia) Prediabetes Spinal stenosis Exercise / Class Metabolic Activity II 4-5 Yardwork/Stairs/Walk up hill Past Family History Family History Father Prostate cancer Mother Diabetes Family history of diabetes mellitus Brother Family history of diabetes mellitus Other No family history of adverse response to anesthesia Past Surgical History Surgical History H/O bilateral inguinal hernia repair History of carpal tunnel surgery RT/LEFT History of colonoscopy History of cystoscopy History of decompression of ulnar nerve left History of lumbar surgery for disc fragment and spinal stenosis History of tonsillectomy Hx of sinus surgery Total knee replacement status RT/LEFT [place] teeth removed Past Anesthesia History No Family Hx of Anesthesia Complications Social History Smoking Status: Never smoker Do You Dip or Chew Tobacco: No Hx Alcohol Use: No Hx Substance Use: No substance use type: does not use Physical Exam Vital Signs Last Vital Signs Temp 36.7 C 11/06/21 13:12 Pulse 69 11/06/21 13:12 Resp 18 11/06/21 13:12 BP 148/93 H 11/06/21 13:12 Pulse Ox 97 11/06/21 13:12 O2 Del Method 11/06/21 13:12 Testing Laboratory Results 11/04/21 08:27 11/03/21 07:09
[2021-11-06] MEDS ORDERED: HYDROmorphone INJ 1 MG/ML SYRINGE IV PRN (14:02)
[2021-11-06] MEDS ORDERED: ePHEDrine sulfate 50 MG/ML AMP IV PRN (14:02)
[2021-11-06] MEDS ORDERED: ATROPINE SULFATE 0.1 MG/ML 10ML SYR IV PRN (14:02)
[2021-11-06] MEDS ORDERED: ONDANSETRON INJ 2 MG/ML 2 ML VIAL IV PRN ×2 (14:02→18:17)
[2021-11-06] MEDS ORDERED: DEXAMETHASONE SOD INJ 4 MG/ML VIAL ONE (14:36)
[2021-11-06] MEDS ORDERED: NEOSTIGMINE METHYLSULFATE 1 MG/ML 10ML VIAL ONE (14:36)
[2021-11-06] MEDS ORDERED: PROPOFOL IV EMULSION 10 MG/ML 20 ML VIAL IV ONE (14:36)
[2021-11-06] MEDS ORDERED: GLYCOPYRROLATE 0.2 MG/ML VIAL ONE (14:36)
[2021-11-06] MEDS ORDERED: ONDANSETRON INJ 2 MG/ML 2 ML VIAL ONE (14:36)
[2021-11-06] MEDS ORDERED: ROCURONIUM BROMIDE 10 MG/ML 5 ML VIAL IV ONE ×2 (14:36)
[2021-11-06] MEDS ORDERED: LIDOCAINE 2% MPF LOCAL 5 ML VIAL INFIL ONE (14:37)
[2021-11-06] MEDS ORDERED: FLOSEAL HEMOSTATIC MATRIX 10ML TOP ONE (15:06)
[2021-11-06] MEDS ORDERED: HYDROmorphone INJ 2 MG/ML SYR/VIAL ONE (15:42)
--- NOTE | 2021-11-06 16:49 | Operative Report ---
Post Operative Report Pre & Post Diagnosis Operation Date: 11/06/21 08:20 Pre-Op Diagnosis: Spinal stenosis with foraminal disc herniation Post-Op Diagnosis: Same I identified the patient and participated in the time-out.: Yes Procedure Operation Date: 11/06/21 08:20 Actual Procedures #1 revision decompression with bilateral medial facetectomies and foraminotomies L1-L2, L2-L3 and L3-L4. #2 posterior spinal fusion L2-L3 L3-L4. #3 placement posterior instrumentation L2-L4. #4 interbody fusion L2-L3 and L3-L4. #5 placement of Spira 9 x 26 mm at L2-L3 and 13 x 26 mm at L3-L4. #6 placement locally harvested morselized autograft and posterior gutters. There are 7 placement of I factor model V toss in interbody space and posterior lateral gutt ers. Surgeon Christian Moore, Legal Document Assistant Iris Wilkins Estimated Blood Loss 200 Findings Consistent with Post-Op Diagnosis Specimens None Indications This is a 66-year-old male who presents with above-mentioned diagnosis after failing course of nonoperative care and having still decline in function is here for the above-mentioned procedure. Description of Procedure Patient was met with identified informed consent obtained. Patient was then taken to the operative suite underwent ablation placed in a prone position on the Bobby table atop the Carlos frame. All bony prominences well-padded eyes inspected to ensure no external pressure placed upon the. This point the lumbar spine was prepped and draped in normal sterile fashion. Sharp dissection with the assistance of Bovie Cardizem performed down to and exposing the remaining lamina and transverse processes of L2-L3-L4 bilaterally. From caudal to cephalad fashion revision complete laminectomy of L4 L3 and partial laminectomy of L1 was performed including bilateral medial facetectomies and foraminotomies addressing severe spinal stenosis as well as dressing foraminal extraforaminal disc at L3-L4 on the right creating severe pressure of the exiting root. After complete decompression pedicle screws were placed in L2-L3-L4 bilaterally with assistance of fluoroscopy and the properly sized christiano placed. By way the transverse foraminal approach on the right a complete discectomy of all 3 L4 was performed endplates curetted to subcortical bleeding bone and a 13 x 26 mm spiral cage filled with I factor tapped the position. Then proceeded to L2-L3 and again by way of a transforaminal portion right complete discectomy performed endplates curetted to subcortical bleeding bone and a 9 x 26 mm spiral cage filled I factor tapped the position. The rods were then locked in final position bilaterally. The transverse processes of L2-L3-L4 burred to subcor tically bone. I factor combined with V toss and locally harvested morselized autograft was placed in the posterior gutters. 15 round YAS drain inserted. The incision was then closed with 1 Vicryl in the fascia 2-0 Vicryl subcutaneously and 4 Monocryl for final skin closure. Steri-Strip sterile dressings placed. Patient waken taken PACU stable condition. Please note spinal cord monitoring was utilized at the procedure no changes noted. Lastly Iris Wilkins was present throughout the surgery involved in patient positioning complex portion of the surgery. I attest to the content of the Intraoperative Record and any orders documented therein. Any exceptions are noted below.
[2021-11-06] MEDS: fentaNYL citrate 100 MCG/2 ML VIAL IV PRN ×4 (17:08→17:26)
--- NOTE | 2021-11-06 17:33 | Fluoroscopy Report ---
FL lumbar spine 2-3V CLINICAL HISTORY: L2-4 DFI TECHNIQUE: 2 views were obtained with the C-arm in the OR with the above procedure. Total fluoroscopy time was 23.6 seconds. Total skin dose was 14.8 mGy. Comparison: Comparison is made to MRI lumbar spine 10/20/2021 FINDINGS/IMPRESSION: Intraoperative images were obtained of L2-L4 discectomy and fusion. Please correlate with intraoperative fluoroscopy and operative report. ACT 112: Negative or not required by law. Electronically signed by: David Casas M.D. 11/06/2021 5:32 PM
--- NOTE | 2021-11-06 17:50 | Anesthesiology Progress Note ---
Date of Service November 06, 2021 Anesthesia Post Procedure Vital Signs Vital Signs: Temp Pulse Pulse Resp BP Pulse Ox O2 Del Method 11/06/21 17:35 90 13 129/80 97 Nasal Cannula 11/06/21 17:25 91 H 13 122/83 94 Room Air 11/06/21 17:15 86 19 138/71 97 Oxymask 11/06/21 17:05 91 H 15 147/91 H 99 Oxymask 11/06/21 16:55 105 H 12 142/78 H 100 Oxymask 11/06/21 16:49 36.1 C L 115 H 14 141/87 H 99 Oxymask 11/06/21 13:12 36.7 C 69 18 148/93 H 97 Room Air 11/06/21 07:11 36.5 C 58 L 14 128/78 97 Room Air 11/05/21 22:08 36.7 C 64 16 138/83 94 Room Air O2 Flow Rate 11/06/21 17:35 2 11/06/21 17:25 11/06/21 17:15 5 11/06/21 17:05 5 11/06/21 16:55 5 11/06/21 16:49 5 11/06/21 13:12 11/06/21 07:11 11/05/21 22:08 Pain Intensity Right Hip: Pain Intensity: 3 Back: Pain Intensity: 4 Transfer of Care Handoff Completed per policy Notes Mental Status: alert / awake / arousable Patient Amnestic to Procedure: Yes Nausea / Vomiting: adequately controlled Pain: adequately controlled Airway Patency, RR, SpO2: stable & adequate BP & HR: stable & adequate Hydration State: stable & adequate Anesthetic Complications: no major complications apparent and Pt Satisfied with anesthetic care
[2021-11-06] MEDS ORDERED: ONDANSETRON 4 MG OD TAB PO PRN (18:17)
[2021-11-06] MEDS ORDERED: LORazepam 0.5 MG in SYRINGE 0.25 ML IV PRN (18:17)
[2021-11-06] MEDS ORDERED: diphenhydrAMINE Capsule 25 MG CAP PO PRN (18:17)
[2021-11-06] MEDS ORDERED: hydrOXYzine HCl 25 MG TAB PO PRN (18:17)
[2021-11-06] MEDS ORDERED: MAGNESIUM HYDROXIDE SUSP 30 ML UDC PO PRN (18:17)
[2021-11-06] MEDS ORDERED: FAMOTIDINE 20 MG TAB PO PRN (18:17)
[2021-11-06] MEDS ORDERED: ALUMINUM/MAGNESIUM SUSP 30 ML UDC PO PRN (18:17)
[2021-11-06] MEDS ORDERED: ACETAMINOPHEN 1,000 MG/100 ML VIAL IV PRN (18:17)
[2021-11-06] MEDS ORDERED: traMADol HCL 50 MG TABLET PO PRN (18:17)
[2021-11-06] MEDS ORDERED: bisacodyL 10 MG SUPP PR PRN (18:17)
[2021-11-06] MEDS ORDERED: SOD PHOSPHATE/SOD BIPHOSPHATE ENEMA 132 ML BTL PR PRN (18:17)
[2021-11-06] MEDS ORDERED: HYDROmorphone INJ 0.5 MG/0.5 ML SYR IV PRN (18:17)
[2021-11-06] MEDS ORDERED: NALOXONE HCL 0.4 MG/1 ML VIAL/CARP IV PRN (18:17)
[2021-11-06] MEDS ORDERED: LORazepam 0.5 MG TAB PO PRN (18:17)
[2021-11-06] MEDS ORDERED: oxyCODONE HCL IR 5 MG TAB (IMMEDIATE RELEASE) PO PRN (18:17)
[2021-11-06] MEDS ORDERED: PROMETHAZINE HCL 12.5 MG in SODIUM CHLORIDE 0.9% 50 ML IV PRN (18:17)
[2021-11-06] MEDS ORDERED: METOCLOPRAMIDE HCL INJ 5 MG/ML 2 ML VIAL IV PRN (18:17)
[2021-11-06] MEDS: LACTATED RINGER'S 1,000 ML IV SCH ×2 (18:29→23:30)
[2021-11-06] MEDS: HYDROmorphone INJ 1 MG/ML SYRINGE IV PRN (20:03)
[2021-11-06] MEDS: DOCUSATE SODIUM/SENNA 50/8.6MG TAB PO SCH (20:17)
[2021-11-06] MEDS: ceFAZolin 2000MG 2,000 MG/15 ML SYR IV SCH (23:12)
[2021-11-07] MEDS: HYDROmorphone INJ 1 MG/ML SYRINGE IV PRN (00:42)
[2021-11-07] MEDS: ceFAZolin 2000MG 2,000 MG/15 ML SYR IV SCH (06:26)
[2021-11-07] MEDS: POLYETHYLENE (MIRALAX) 17 GM PACK PO SCH ×3 (06:26→18:03)
[2021-11-07 07:58] LABS: Basophils # (auto) 0.01 K/uL (0-0.2); Basophils % (auto) 0.1 %; Hematocrit (blood only) 44.8 % (40.1-51.0); Hemoglobin 15.8 g/dl (14.0-18.0); Immature Granulocytes # (auto) 0.07 K/uL (0.00-0.02); Immature Granulocytes % (auto) 0.6 %; Lymphocytes # (auto) 0.76 K/uL (1.2-3.4); Lymphocytes % (auto) 6.1 %; Mean Corpuscular Hemoglobin 30.8 pg (25.0-34.0); Mean Corpuscular Hgb Conc 35.3 g/dL (32.0-36.0); Mean Corpuscular Volume 87.3 fL (80.0-100.0); Mean Platelet Volume 8.6 fL (9.4-12.4); Monocytes # (auto) 1.28 K/uL (0.24-0.82); Monocytes % (auto) 10.3 %; Neutrophils # (auto) 10.29 K/uL (1.4-6.5); Neutrophils % (auto) 82.9 %; Platelet Count 192 K/uL (130-400); RDW Coefficient of Variation 12.5 % (11.5-14.5); RDW Standard Deviation 40.3 fL (36.4-46.3); Red Blood Count 5.13 M/uL (4.63-6.08); White Blood Count 12.41 K/ul (4.8-10.8)
[2021-11-07 08:23] LABS: BUN Creatinine Ratio 17.6 (10-20); Calcium 8.8 mg/dl (8.5-10.1); Creatinine Clr Calc Pharmacy 99.5 ml/min; Est GFR (African American) 111.4 ml/min; Est GFR (Non-African American) 96.1 ml/min; Potassium 3.8 mmol/L (3.5-5.1)
[2021-11-07] MEDS: dexAMETHasone 6 MG in SYRINGE 0 ML IV SCH (08:57)
[2021-11-07] MEDS: TAMSULOSIN HCL 0.4 MG CAP PO SCH (08:57)
[2021-11-07] MEDS: ATORVASTATIN 20 MG TAB PO SCH (08:57)
[2021-11-07] MEDS: DOCUSATE SODIUM 100 MG CAP PO SCH ×2 (08:57→20:32)
--- NOTE | 2021-11-07 11:07 | Orthopedic Progress Note ---
Date of Service November 07, 2021 Assessment & Plan (1) Lumbar disc herniation with radiculopathy: Plan: This time continue physical therapy monitor his YAS operatively discharge over next few days. Admission and Anticipated Discharge Date Admission Date: November 02, 2021 Subjective Patient's back pain is controlled leg symptoms markedly improved. He did quite well with physical therapy this morning. Physical Exam Physical Exam: Patient is in bed. Is good strength testing extremities. Appears comfortable. Results & Data ([facility]) Vital Signs (Past 12 Hours) Vital Signs Temp Pulse Pulse Resp BP Pulse Ox O2 Del Method 11/07/21 07:36 36.5 C 89 18 116/70 93 Room Air 11/07/21 03:34 36.4 C L 97 H 18 115/76 96 Nasal Cannula 11/07/21 00:31 O2 Flow Rate 11/07/21 07:36 11/07/21 03:34 2.0 11/07/21 00:31 2
--- NOTE | 2021-11-07 13:17 | Hospitalist Progress Note ---
Date of Service November 07, 2021 Assessment & Plan (1) Degenerative disc disease: (2) Lumbar radiculopathy: (3) Prediabetes: (4) HLD (hyperlipidemia): (5) BPH w urinary obs/LUTS: Plan Pt is a 66 year old who presented to the [facility] with worsening sciatica and lower back pain. Pt has had complex back surgeries in his past. Two weeks ago, on 10/20 an MRI was obtained and results indicated disc buldging; surgery was discussed but more conservative approach was made. Pt returned to ED with worsening pain and symptoms. Degenerative Disc Disease Lumbar Radiculopathy 10/20/21: Lumbar MRI: 9 x 6 mm right foraminal disc extrusion at the L3-L4 level which compresses the exiting right L3 nerve root Mild paravertebral edema and enhancement at the L3 level. Mild endplate edema at the L2-L3 level. POD#1 L2-L3, L3-L4 decompression and fusion by Dr. Moore Activity and wound care orders as per ortho Pain control with bowel regimen PT/OT Monitor H/H for acute blood loss anemia and transfuse blood products PRN EBL 200cc, YAS output 55cc Hgb stable at 15.8 Prediabetes: Diet controlled A1C: 5.6 on 08/30/21 HLD: Continue statin BPH: on Alycia at home which is non-formulary, will continue with tamsulosin Disposition: PCP: Dr. Mert Linares VTE prophylaxis: TEDs/SCDs as per spine Ortho Admission and Anticipated Discharge Date Admission Date: November 02, 2021 Supervising Physician Co-Signing Physician Notes Patient seen and examined at bedside as a follow-up of lumbar disc protrusion with lumbar radiculopathy with RLE greater than LLE symptoms s/p lumbar decompression and fusion 11/06/[address] Moore[address] Orthospine followng. Watch out ABL postopertively. Labs in AM. Upon examination: GENERAL: Alert and oriented x3. NAD, on RA. HEENT: No pallor, no icterus. Pupils equal, round and reactive to light. Oral mucosa moist. NECK: No JVD, no neck masses. HEART: S1 and S2 heard. Regular rate and rhythm. No murmur, no gallop. RESPIRATORY SYSTEM: Normal AP diameter. No accessory muscle use. No wheezing, no crackles. ABDOMEN: Soft, bowel sounds present, nontender, no distention. CENTRAL NERVOUS SYSTEM: No facial droop. Speech is clear. Obeys simple commands. Moves extremities. EXTREMITIES: No edema, no erythema seen. Lower back w/ clean dressing w/o soakage. YAS drain w/ minimal S-S collection noted. I have seen and examined the patient and have discussed the case with the provider above. I agree with the assessment and plan as stated. Subjective Follow-up for lumbar radiculopathy, s/p L2-L3, L3-L4 decompression and fusion. Patient seen and examined. Reports marked improvement in his symptoms. Reports that he was able to ambulate in the monzon with therapy this morning. Pain is well controlled. Denies chest pain shortness of breath. No lightheadedness or dizziness. Denies abdominal pain or nausea. Hayes catheter remains in place, + flatus, no BM. Review of Systems Review of Systems: ROS per HPI, all other systems reviewed and negative Physical Exam Constitutional: WD/WN, vitals as above Respiratory: normal respiratory effort, lungs clear to auscultation Cardiovascular: Rate/Rhythm: regular rate and regular rhythm Vessels: normal peripheral pulses Extremities: no edema Gastrointestinal (Abdomen): Percussion/Palpation: abdomen soft; abdomen nontender Musculoskeletal: S/p back surgery, pedal pushes and pulls strong bilaterally Skin: no rashes, warm and dry Neurologic: no focal motor deficits Psychiatric: A+Ox3, euthymic affect Genitourinary: Hayes in place draining clear yellow urine Results & Data Results & Data ([facility]) Vital Signs (Past 12 Hours) Vital Signs Temp Pulse Pulse Resp BP Pulse Ox O2 Del Method 11/07/21 11:52 36.4 C L 82 18 124/73 91 11/07/21 07:36 36.5 C 89 18 116/70 93 Room Air 11/07/21 03:34 36.4 C L 97 H 18 115/76 96 Nasal Cannula O2 Flow Rate 11/07/21 11:52 11/07/21 07:36 11/07/21 03:34 2.0 Laboratory Results Short CBC 11/07/21 Range/Units 07:06 WBC 12.41 H (4.8-10.8) K/ul Hgb 15.8 (14.0-18.0) g/dl Hct 44.8 (40.1-51.0) % Plt Count 192 (130-400) K/uL BMP 11/07/21 07:06 Sodium 135 L Potassium 3.8 Chloride 101 Carbon Dioxide 27 BUN 13 Creatinine 0.74 Glucose 138 H Calcium 8.8
[2021-11-07] MEDS: ACETAMINOPHEN 500 MG TAB PO PRN (15:09)
[2021-11-07] MEDS: LACTATED RINGER'S 1,000 ML IV SCH (15:22)
[2021-11-07] MEDS: DOCUSATE SODIUM/SENNA 50/8.6MG TAB PO SCH (20:32)
[2021-11-08] MEDS: POLYETHYLENE (MIRALAX) 17 GM PACK PO SCH ×4 (00:22→18:12)
[2021-11-08] MEDS: ACETAMINOPHEN 500 MG TAB PO PRN ×2 (04:43→20:52)
[2021-11-08 07:08] LABS: Hematocrit (blood only) 41.1 % (40.1-51.0); Mean Corpuscular Hemoglobin 30.1 pg (25.0-34.0); Mean Corpuscular Hgb Conc 34.1 g/dL (32.0-36.0); Mean Corpuscular Volume 88.4 fL (80.0-100.0); Mean Platelet Volume 8.8 fL (9.4-12.4); Platelet Count 183 K/uL (130-400); RDW Coefficient of Variation 12.8 % (11.5-14.5); RDW Standard Deviation 41.2 fL (36.4-46.3); Red Blood Count 4.65 M/uL (4.63-6.08); White Blood Count 13.71 K/ul (4.8-10.8)
[2021-11-08] MEDS: dexAMETHasone 6 MG in SYRINGE 0 ML IV SCH (09:36)
[2021-11-08] MEDS: DOCUSATE SODIUM 100 MG CAP PO SCH ×2 (09:40→20:39)
[2021-11-08] MEDS: TAMSULOSIN HCL 0.4 MG CAP PO SCH (09:40)
[2021-11-08] MEDS: ATORVASTATIN 20 MG TAB PO SCH (09:40)
--- NOTE | 2021-11-08 09:53 | Orthopedic Progress Note ---
Date of Service November 08, 2021 Assessment & Plan (1) Lumbar disc herniation with radiculopathy: Plan: At this time we will continue physical therapy monitor his YAS output anticipate discharge home tomorrow. Admission and Anticipated Discharge Date Admission Date: November 02, 2021 Subjective Back pain controlled leg pain improving. He is having positive flatus but no bowel movement yet. Physical Exam Physical Exam: Exam patient is in the chair at the bedside. Is good strength testing. Results & Data ([facility]) Vital Signs (Past 12 Hours) Vital Signs Temp Pulse Pulse Resp BP Pulse Ox O2 Del Method 11/08/21 07:28 36.3 C L 63 16 119/76 96 11/07/21 22:46 36.3 C L 85 16 110/69 95 Room Air
--- NOTE | 2021-11-08 15:09 | Hospitalist Progress Note ---
Date of Service November 08, 2021 Assessment & Plan (1) Degenerative disc disease: (2) Lumbar radiculopathy: (3) Prediabetes: (4) HLD (hyperlipidemia): (5) BPH w urinary obs/LUTS: Plan Pt is a 66 year old who presented to the [facility] with worsening sciatica and lower back pain. Pt has had complex back surgeries in his past. Two weeks ago, on 10/20 an MRI was obtained and results indicated disc buldging; surgery was discussed but more conservative approach was made. Pt returned to ED with worsening pain and symptoms. Degenerative Disc Disease Lumbar Radiculopathy 10/20/21: Lumbar MRI: 9 x 6 mm right foraminal disc extrusion at the L3-L4 level which compresses the exiting right L3 nerve root Mild paravertebral edema and enhancement at the L3 level. Mild endplate edema at the L2-L3 level. POD#2 L2-L3, L3-L4 decompression and fusion by Dr. Moore Activity and wound care orders as per ortho Pain control with bowel regimen PT/OT Monitor H/H for acute blood loss anemia and transfuse blood products PRN EBL 200cc, YAS output 260cc Hgb stable at 14.0 Mild leukocytosis noted (13 K) --likely due to steroids/stress response. No signs of infection. Prediabetes: Diet controlled A1C: 5.6 on 08/30/21 HLD: Continue statin BPH: on Alycia at home which is non-formulary, will continue with tamsulosin Disposition: PCP: Dr. Mert Linares VTE prophylaxis: TEDs/SCDs as per spine Ortho Expect DC home tomorrow. Admission and Anticipated Discharge Date Admission Date: November 02, 2021 Supervising Physician Co-Signing Physician Notes Patient seen and examined at bedside as a follow-up of lumbar disc protrusion with lumbar radiculopathy with RLE greater than LLE symptoms s/p lumbar decompression and fusion 11/06/[address] Moore. Orthospine followng. Upon examination: GENERAL: Alert and oriented x3. NAD, on RA. HEENT: No pallor, no icterus. Pupils equal, round and reactive to light. Oral mucosa moist. NECK: No JVD, no neck masses. HEART: S1 and S2 heard. Regular rate and rhythm. No murmur, no gallop. RESPIRATORY SYSTEM: Normal AP diameter. No accessory muscle use. No wheezing, no crackles. ABDOMEN: Soft, bowel sounds present, nontender, no distention. CENTRAL NERVOUS SYSTEM: No facial droop. Speech is clear. Obeys simple commands. Moves extremities. EXTREMITIES: No edema, no erythema seen. Lower back w/ clean dressing w/o soakage. I have seen and examined the patient and have discussed the case with the provider above. I agree with the assessment and plan as stated. Subjective Follow-up for lumbar radiculopathy, s/p L2-L3, L3-L4 decompression and fusion. Patient seen and examined. Offers no complaints. Reports pain is well controlled. Has been up ambulating in the hallway. No chest pain or shortness of breath. Denies abdominal pain or nausea. Urinating and + BM. Review of Systems Review of Systems: ROS per HPI, all other systems reviewed and negative Physical Exam Constitutional: WD/WN, vitals as above Respiratory: normal respiratory effort, lungs clear to auscultation Cardiovascular: Rate/Rhythm: regular rate and regular rhythm Vessels: normal peripheral pulses Extremities: no edema Gastrointestinal (Abdomen): Percussion/Palpation: abdomen soft; abdomen nontender Musculoskeletal: S/p back surgery, strength strong and equal BLE Skin: no rashes, warm and dry Neurologic: no focal motor deficits Psychiatric: A+Ox3, euthymic affect Results & Data Results & Data ([facility]) Vital Signs (Past 12 Hours) Vital Signs Temp Pulse Resp BP Pulse Ox 11/08/21 14:35 36.7 C 83 18 125/81 95 11/08/21 07:28 36.3 C L 63 16 119/76 96 Laboratory Results Short CBC 11/08/21 Range/Units 06:01 WBC 13.71 H (4.8-10.8) K/ul Hgb 14.0 (14.0-18.0) g/dl Hct 41.1 (40.1-51.0) % Plt Count 183 (130-400) K/uL
[2021-11-08] MEDS: DOCUSATE SODIUM/SENNA 50/8.6MG TAB PO SCH (20:39)
[2021-11-09] MEDS: POLYETHYLENE (MIRALAX) 17 GM PACK PO SCH ×2 (00:51→05:57)
[2021-11-09] MEDS: dexAMETHasone 6 MG in SYRINGE 0 ML IV SCH (08:32)
[2021-11-09] MEDS: ATORVASTATIN 20 MG TAB PO SCH (08:35)
--- NOTE | 2021-11-09 08:35 | Discharge Summary ---
Date of Service November 09, 2021 Admission HPI Per Admitting Provider Pt is a 66 year old who presented to the [facility] with worsening sciatica and lower back pain 12/04. Pt has had complex back surgeries in his past. Two weeks ago, on 10/20 a lumbar spine x-ray and MRI was obtained and results indicated disc buldging; surgery was discussed but more conservative approach was made. Pt returned to ED with worsening pain and symptoms. Dr. Moore to see pt on 11/03 for evaluation for surgery. Patient will be admitted under medicine service overnight; pain management and will be kept NPO after midnight for possible surgical intervention. Additional PMH includes: HLD, prediabetes, arthritis and BPH. Please see A/P for further details. Principal Diagnosis Lumbar spinal stenosis with herniated was pulposis and radiculopathy Discharge Data Allergies Allergy/AdvReac Type Severity Reaction Status Date / Time No Known Allergies Allergy Verified 01/16/21 08:52 Consultations 11/02/21 16:50 ED Decision to Admit Stat 11/03/21 07:00 Consult Orthopedic Surgery Routine Procedures Performed Operation Date: 11/06/21 08:20 Actual Procedures p Decompression Fusion L2-L4(Not Applicable) - Christian Moore DO Ordered Studies 11/06/21 13:30 [place] lumbar spine 2-3V Routine Hospital Course (1) Lumbar disc herniation with radiculopathy: Patient presented to the emergency room with severe pain and was subsequently admitted. Ultimately underwent surgery. He tolerates well stable orthopedic for postoperative. Postop day 1 he was up ambulating progress postop day #2 postop day 3 pain was well controlled strength improving YAS drain decreased appropriately. Subsequent discharge home. Discharge orders instructions from the chart for further review. Total Time Total Time Spent Total Time Spent (In Minutes): 20 minutes Discharge Plan Discharge Items Patient Disposition: Home - Self-Care Reason For Visit: INTRACTABLE PAIN Discharge Diagnosis: Lumbar spinal stenosis with radiculopathy Activity: As commented below Non-emergency contact: Primary Care Provider Call non-emergency contact if: you have any medication questions Follow-up/Referrals: Mert Linares DO [Primary Care Provider] - (Date & Time 11/13/2021 11:20 AM Provider June Cuevas MD Department Family [facility] ) Diet: Regular Addtl Attending Provider Instructions: ACTIVITY RECOMMENDATIONS: SELF CARE INSTRUCTIONS AFTER THORACIC/LUMBAR FUSIONS 1. You may walk to your tolerance. It is good exercise for your legs and back. Expect some back and intermittent leg aches and pains. 2. You may perform "counter-top" level activities (make a sandwich, artie with a project, etc.). 3. No bending or lifting of more than 10 pounds or back twisting of any nature (roll like a log when turning in bed). 4. You may ride in a car for 20-30 minutes at a time. No driving until after your first visit with your doctor. 5. Frequent changes of position and restricting sitting to 30 minutes at a time will help limit the amount of back spasms and stiffness you may experience. 6. You may discontinue the use of ambulatory aids (cane, crutches, etc.) once your strength and confidence allow. 7. You may lay out inspector the shower and let water strike your incision when you arrive home at least once daily. Do not take a tub bath, sit in a hot tub or go into a swimming pool until after your first recheck in the office. SPECIAL CARE INSTRUCTIONS: VERY IMPORTANT TO READ AND REVIEW A. Your surgical incision has been closed with a cosmetic suture under the skin that will dissolve in about 6 weeks. In 14 days, you can use a pair of clean scissors and cut the suture that is left outside of the skin at the ends of your incision. 1. The small skin tapes can be removed 7 days after surgery if they have not fallen off by that point. 2. You may keep the wound open to air as much as possible to promote healing after post-op day number 5 unless told otherwise by your doctor. 3. If you think the wound looks like it is becoming infected (redness or worsening drainage) and/or you are experiencing fever, chill or worsening back pain and muscle spasms, contact the office so that we may evaluate you as soon as possible. B. Complications are uncommon, but please contact us if you have any signs or symptoms of: 1. wound infection (fever higher than 102.5 degrees F, redness, separation of wound, drainage, or increasing pain from the incision) 2. blood clots in legs (pain, swelling, redness and warmth in legs) 3. urinary tract infection (fever higher than 102.5 degrees F, burning upon urination or increased frequency of urination) 4. nerve problems (inability to walk on your toes or heels, numbness, loss of bowel or bladder control) 5. any other symptoms that concern you C. Please call the office at if you have any concerns or questions about your operation or recovery. D. No smoking! Smoking drastically decreases the chance of a solid fusion. E. Do not take any anti-inflammatory medications (Indocin, Advil, Motrin, Aspirin, Naprosyn, etc.) as these may inhibit the chance of a solid fusion. Tylenol is okay to take for pain. MANAGING PAIN AFTER SPINAL SURGERY 1. Narcotic medication is intended for short-term use and will be provided for surgical pain. Surgical pain usually lasts for a period of 4-6 weeks. Narcotic medication includes Percocet, Vicodin, Darvocet, Tylenol #3 or Lortab. 2. Longer-term pain is more appropriately treated with non-narcotic medication such as Tylenol ES. 3. Muscle spasm is not appropriately treated with narcotics. Muscle relaxers such as Soma, Flexeril or Skelaxin can be used along with Tylenol ES. 4. Remember that we all live with some "aches and pains". This is not unusual or uncommon after an injury or as we get older. a. Back pain is expected and may include muscle spasms for 4 to 6 weeks after surgery. The pain should gradually improve. If the pain worsens for no apparent reason, please contact the office. b. Intermittent leg pain may also be experienced and should not be concerned about unless it worsens for no apparent reason. If so, please contact the office. 5. We will provide appropriate medication within the normal guidelines of their prescribed use. We will also be very cautious and aware of potential abuse and extended duration of patients' medication needs. a. Pain medications are for your comfort and to assist with sleep and rest so that the tissue can heal. They are not provided in order to return to normal activity and should not be used through the day. To do so or worsening pain at night can result from ongoing tissue damage and development of tolerance to the prescribed medicine. 6. Please allow 2-3 days to process refills. Prescriptions will not be mailed but must be picked up at the office. FOLLOW UP VISIT: Keep your scheduled follow-up appointment. Any questions, please call the office at . Pending Studies at Discharge: No Stand-Alone Forms: My [facility], Smoking Cessation Medications and DC Order Prescriptions: New tramadol 50 mg tablet 50 mg PO Q6H PRN (Reason: pain, moderate) Qty: 30 0RF oxycodone 5 mg tablet 5 mg PO Q6H PRN (Reason: pain, severe) Qty: 30 0RF Continued atorvastatin 20 mg tablet 20 mg PO QAM dutasteride-tamsulosin [Diana] 0.5-0.4 mg capsule, ER multiphase 24 hr 1 cap PO QAM Qty: 90 3RF potassium citrate 10 mEq (1,080 mg) tablet extended release 10 meq PO QAM Qty: 90 3RF Discontinued prednisone 10 mg tablet See Rx Instructions .ROUTE .COMPLEX Qty: 39 0RF Rx Instructions: 50mg x3d, 40mg x3d, 30mg x2d, 20mg x2d, 10mg x2d Discharge Orders: Discharge Order (Routine); Ordered 11/09/21 Ordered By: Christian Moore Admission Data Admit Date/Time: 11/02/21 16:55 Attending Provider: Javier Sampson Admit Provider: Antonella Kirby Primary Care Provider: Mert Linares Other Providers: Antonella Kirby ; Christian Moore ; Luciana Cerrato
[2021-11-09] MEDS: TAMSULOSIN HCL 0.4 MG CAP PO SCH (08:36)
[2021-11-09] MEDS: DOCUSATE SODIUM 100 MG CAP PO SCH (08:40)
[2021-11-09 08:42] LABS: Hematocrit (blood only) 40.5 % (40.1-51.0); Hemoglobin 13.7 g/dl (14.0-18.0); Mean Corpuscular Hemoglobin 30.4 pg (25.0-34.0); Mean Corpuscular Hgb Conc 33.8 g/dL (32.0-36.0); Mean Corpuscular Volume 89.8 fL (80.0-100.0); Mean Platelet Volume 8.6 fL (9.4-12.4); Platelet Count 179 K/uL (130-400); RDW Coefficient of Variation 12.8 % (11.5-14.5); RDW Standard Deviation 42.1 fL (36.4-46.3); Red Blood Count 4.51 M/uL (4.63-6.08); White Blood Count 11.53 K/ul (4.8-10.8)
--- NOTE | 2021-11-09 09:43 | Hospitalist Progress Note ---
Date of Service November 09, 2021 Assessment & Plan (1) Degenerative disc disease: (2) Lumbar radiculopathy: (3) Prediabetes: (4) HLD (hyperlipidemia): (5) BPH w urinary obs/LUTS: Plan Pt is a 66 year old who presented to the [facility] with worsening sciatica and lower back pain. Pt has had complex back surgeries in his past. Two weeks ago, on 10/20 an MRI was obtained and results indicated disc buldging; surgery was discussed but more conservative approach was made. Pt returned to ED with worsening pain and symptoms. Degenerative Disc Disease Lumbar Radiculopathy 10/20/21: Lumbar MRI: 9 x 6 mm right foraminal disc extrusion at the L3-L4 level which compresses the exiting right L3 nerve root Mild paravertebral edema and enhancement at the L3 level. Mild endplate edema at the L2-L3 level. POD#3 L2-L3, L3-L4 decompression and fusion by Dr. Moore Activity and wound care orders as per ortho Pain control with bowel regimen PT/OT Monitor H/H for acute blood loss anemia and transfuse blood products PRN EBL 200cc, YAS output 260cc Hgb stable at 13.7 (14 yesterday) Mild leukocytosis noted and downtrending (13k -> 11k) --likely due to steroids/stress response. No signs of infection. Prediabetes: Diet controlled A1C: 5.6 on 08/30/21 HLD: Continue statin BPH: on Alycia at home which is non-formulary, will continue with tamsulosin Disposition: PCP: Dr. Mert Linares VTE prophylaxis: TEDs/SCDs as per spine Ortho Discharge home today per orthopedic service. Will sign off at this time. Patient seen in collaboration with Dr. Sampson. Please see addendum. Admission and Anticipated Discharge Date Admission Date: November 02, 2021 Supervising Physician Co-Signing Physician Notes Patient seen and examined at bedside as a follow-up of lumbar disc protrusion with lumbar radiculopathy with RLE greater than LLE symptoms s/p lumbar decompression and fusion 11/06/[address] Moore. Orthospine followng. Upon examination: GENERAL: Alert and oriented x3. NAD, on RA. HEENT: No pallor, no icterus. Pupils equal, round and reactive to light. Oral mucosa moist. NECK: No JVD, no neck masses. HEART: S1 and S2 heard. Regular rate and rhythm. No murmur, no gallop. RESPIRATORY SYSTEM: Normal AP diameter. No accessory muscle use. No wheezing, no crackles. ABDOMEN: Soft, bowel sounds present, nontender, no distention. CENTRAL NERVOUS SYSTEM: No facial droop. Speech is clear. Obeys simple commands. Moves extremities. EXTREMITIES: No edema, no erythema seen. Patient ok for discharge today from ortho and medical standpoint. I have seen and examined the patient and have discussed the case with the provider above. I agree with the assessment and plan as stated. Subjective Patient seen and examined in 355-1 in follow-up for lumbar radiculopathy, s/p L2-L3, L3-L4 decompression and fusion. Feeling well today with decreased surgical site pain. Still some knee pain; discussed this with Dr. Moore this morning and thought to improve with time post-operatively. Planning to follow up with ortho in clinic. Ambulating halls without issue. Urinating and having bowel movements. No fever, chills, headache, chest pain, shortness of breath, nausea, vomiting, abdominal pain, dysuria or constipation. Review of Systems Review of Systems: ROS per HPI, all other systems reviewed and negative Physical Exam Physical Exam: Gen: WD/WN, NAD, sitting in bed, A&Ox3 HEENT: Normocephalic, atraumatic, conjunctivae moist, sclerae anicteric, mucous membranes moist Lung: Clear to Auscultation bilaterally, no wheezes/rales/rhonchi Heart: Regular rate, regular rhythm, no murmurs, rubs, or gallops Abdomen: Soft, NT, ND +BS x 4 Extremities: Lumbar dressing c/d/i. YAS drain visualized. No edema of BLE Skin: Warm, no rash Results & Data Results & Data ([facility]) Vital Signs (Past 12 Hours) Vital Signs Temp Pulse Resp BP Pulse Ox O2 Del Method 11/09/21 06:01 36.5 C 74 16 138/86 95 Room Air 11/08/21 22:44 36.7 C 67 16 126/73 98 Room Air Laboratory Results Short CBC 11/09/21 Range/Units 08:24 WBC 11.53 H (4.8-10.8) K/ul Hgb 13.7 L (14.0-18.0) g/dl Hct 40.5 (40.1-51.0) % Plt Count 179 (130-400) K/uL Diagnostic Findings Lumbar Spine X-Ray 11/06/21 13:30 FL lumbar spine 2-3V CLINICAL HISTORY: L2-4 DFI TECHNIQUE: 2 views were obtained with the C-arm in the OR with the above procedure. Total fluoroscopy time was 23.6 seconds. Total skin dose was 14.8 mGy. Comparison: Comparison is made to MRI lumbar spine 10/20/2021 FINDINGS/IMPRESSION: Intraoperative images were obtained of L2-L4 discectomy and fusion. Please correlate with intraoperative fluoroscopy and operative report. ACT 112: Negative or not required by law. Electronically signed by: David Casas M.D. 11/06/2021 5:32 PM
== END 2021-11-09 11:16 | disposition home or self-care (01) | DRG 455 ==
LOC: ED 13:52 → 3W 16:55 → SUATTDRO 16:55 → 3W 20:49